=== PATIENT | female | born 1980 | race Caucasian/White ===

== ENCOUNTER → 2024-09-27 | Outpatient (REF) | payer OTHER | LOC: M PLALAB 11:22 | PROVIDERS: ATTEND Obstetrics & Gynecology | DX: N93.9 Abnormal uterine and vaginal bleeding, unspecified (principal) ==

== ENCOUNTER → 2025-10-19 | Outpatient (REF) | payer OTHER | LOC: M LAB REF 16:19 | PROVIDERS: ATTEND Surgery | DX: L72.0 Epidermal cyst (principal) ==